=== PATIENT | female | born 1985 | race Caucasian/White ===

== ENCOUNTER 2018-12-08 09:57 | Emergency (ER) | payer SELFPAY ==
[~2018-12-08] VITALS: Ht 162.6 cm; Wt 77.1 kg
[2018-12-08 10:32] VITALS: BP 118/68
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
[2018-12-08] MEDS ORDERED: CYCLOBENZAPRINE10 MG ORAL (10:58)
[2018-12-08] MEDS ORDERED: IBUPROFEN600 MG ORAL (10:58)
[2018-12-08 11:21] VITALS: BP 118/68
--- NOTE | 2018-12-08 11:22 | NUR ---
ED Nurse Note:wrist splint was placed on left arm, pt. received d/c instructions with prescriptions and they left ER condition stable
== END 2018-12-08 11:30 | disposition home or self-care (01) ==
LOC: EMR 11:15
DX: M25.511 Pain in right shoulder (principal); R68.84 Jaw pain; V43.62XA Car passenger injured in collision with other type car in traffic accident, initial encounter; Y92.481 Parking lot as the place of occurrence of the external cause
CPT/HCPCS: 99282